=== PATIENT | male | born 1990 | race Two or more races ===

== ENCOUNTER 2021-07-04 13:12 | Emergency (ER) | payer OTHER ==
[2021-07-04 13:21] VITALS: BP 122/86; PULSE 95; BMI 34.0
[2021-07-04] MEDS ORDERED: KETOROLAC TROMETHAMINE 30 MG/1 ML VIAL IM ONE (14:32)
[2021-07-04] MEDS ORDERED: KETOROLAC TROMETHAMINE 30 MG/1 ML VIAL ONE (14:34)
== END 2021-07-04 15:30 | disposition home or self-care (01) ==
LOC: JERFT 13:12
PROC: 3E0233Z Introduction of Anti-inflammatory into Muscle, Percutaneous Approach (ICD-10-PCS; principal; 2021-07-04)
DX: M25.561 Pain in right knee (principal); X50.3XXA Overexertion from repetitive movements, initial encounter; Y93.B9 Activity, other involving muscle strengthening exercises
CPT/HCPCS: 73562-TC-RT-FY; 99284-25